=== PATIENT | female | born 1990 ===

== ENCOUNTER 2019-05-12 07:18 | Inpatient (IN) | payer BC ==
[2019-05-12] MEDS ORDERED: Carboprost Tromethamine 250 MCG/1 ML Amp IM PRN (08:31)
[2019-05-12] MEDS ORDERED: Methylergonovine 0.2 MG/1 ML Amp IM PRN (08:31)
[2019-05-12] MEDS ORDERED: Lidocaine 1% 50 ML MDV INJECT PRN (08:31)
[2019-05-12] MEDS ORDERED: Sodium Chloride 0.9% 10 ML Syringe FLUSH PRN (08:31)
[2019-05-12] MEDS ORDERED: Nalbuphine 10 MG/1 ML Vial IVPUSH PRN (08:31)
[2019-05-12] MEDS ORDERED: Tranexamic Acid 1,000 MG in Sodium Chloride 0.9% 100 ML IV PRN (08:31)
[2019-05-12] MEDS ORDERED: Misoprostol 200 MCG Tab PO PRN (08:31)
[2019-05-12] MEDS ORDERED: Butorphanol 1 MG/ML SDV IVPUSH PRN (08:31)
[2019-05-12] MEDS ORDERED: Sodium Chloride 0.9% 10 ML SDV IV PRN (08:31)
[2019-05-12] MEDS ORDERED: Water For Irrigation,Sterile 1,000 ML Container IRR PRN (08:31)
[2019-05-12] MEDS ORDERED: Ampicillin 2 GM in Sodium Chloride 0.9% 100 ML IV ONE (08:31)
[2019-05-12] MEDS ORDERED: Sodium Chloride 0.9% 2.5 ML Syringe FLUSH PRN (08:31)
[2019-05-12] MEDS ORDERED: Oxytocin/0.9 % Sodium Chloride 30 UNIT/500 ML BAG IV SCH (08:45)
[2019-05-12] MEDS ORDERED: Lactated Ringers 1,000 ML IV SCH (08:45)
[2019-05-12] MEDS: Ampicillin 1 GM in Sodium Chloride 0.9% 50 ML IV SCH ×3 (13:08→21:07)
[2019-05-12] MEDS ORDERED: Lanolin 100% Cream 7 GM Tube TOP PRN (22:52)
[2019-05-12] MEDS ORDERED: oxyCODONE 5 MG Tab PO PRN (22:52)
[2019-05-12] MEDS ORDERED: Witch Hazel Medicated Pads 40/Jar TOP PRN (22:52)
[2019-05-12] MEDS ORDERED: Ibuprofen 400 MG Tab PO PRN (22:52)
[2019-05-12] MEDS ORDERED: Docusate Sodium 100 MG Cap PO PRN (22:52)
[2019-05-12] MEDS ORDERED: Ibuprofen 800 MG Tab PO PRN (22:52)
[2019-05-12] MEDS ORDERED: Aluminum Hydroxide/Magnesium Hydroxide/Simethicone Susp 30 ML Cup PO PRN (22:52)
[2019-05-12] MEDS ORDERED: Benzocaine/Menthol 20%-0.5% Spray 78 GM Cannister TOP PRN (22:52)
[2019-05-12] MEDS ORDERED: Bisacodyl 10 MG Supp RECTAL PRN (22:52)
[2019-05-12] MEDS ORDERED: Acetaminophen 500 MG Tab PO PRN ×2 (22:52)
--- NOTE | 2019-05-12 22:53 | PCM.OPNOTE ---
- General Post-Op/Procedure Note Date of Surgery/Procedure: 05/12/19 Findings: Spontaneous vaginal delivery of a life male . Apgars 8 and 9. Weight pending. 3vc. Placenta intact. Pre Op Diagnosis: 40/1 IUP. 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
--- NOTE | 2019-05-13 00:43 | OR ---
SURGEON: Deedee Hummel M.D. DATE OF PROCEDURE: 05/12/2019 PREOPERATIVE DIAGNOSES: Forty one weeks' intrauterine , group B Streptococcus positive, active spontaneous labor. POSTOPERATIVE DIAGNOSES: Forty one weeks' intrauterine , group B Streptococcus positive, active spontaneous labor. PROCEDURE: Term spontaneous vaginal delivery. CARBIDE DIE MAKER: DONALDO Momin. ESTIMATED BLOOD LOSS: 250 mL. FINDINGS: Live born male, scores 8 and 9. Weight pending at time of dictation. Placenta spontaneous, intact. Three-vessel cord. COMPLICATIONS: None known. DISPOSITION: Mother and baby are stable in LDR in good condition. This is a 28-year-old female, G1, P0, presenting at 41 weeks' gestation in active spontaneous labor, initially 3 cm. She was noted to be GBS positive and received prophylactic doses of ampicillin. Category 1 heart tones throughout labor. Artificial rupture of membranes at 5 cm and she progressed to complete and had the urge to push. DESCRIPTION OF PROCEDURE: The patient in dorsal lithotomy position. The patient pushed to 5+ station, at which time the head was delivered spontaneously and atraumatically over the perineum with support and subsequent delivery of the 's shoulders and body without any difficulty. The infant was bulb suctioned by nose and mouth, and after the cord had ceased to pulsate, it was doubly clamped and cut. The infant was handed to the mother in the presence of the nurse and attending delivery nurse. The infant was a live-born male, scores of 8 and 9. Weight is pending at time of dictation. . Cord blood was collected for cord ABGs as well as routine cord blood sampling. Cord was clamped x 2 and cut Placenta was delivered intact and spontaneously with 3-vessel cord. Cervix, vaginal side hart and perieum were inspected and no laceratons observed. Estimated blood loss 250 mL. Final sponge, needle, and instrument counts were correct. Mother and baby remained in LDR in good condition. EMANUEL / BASILIA /[id number] SARAH
--- NOTE | 2019-05-13 07:56 | PCM.PNPP ---
<Hilary Kong - Last Filed: 05/13/19 07:54> - General Info Date of Service: 05/13/19 Functional Status: Reports: Pain Controlled - Review of Systems General: Reports: No Symptoms. Denies: Fever HEENT: Reports: No Symptoms. Denies: Headaches Pulmonary: Reports: No Symptoms. Denies: Shortness of Breath Cardiovascular: Reports: No Symptoms. Denies: Chest Pain, Palpitations Gastrointestinal: Reports: Abdominal Pain (cramping with ) Genitourinary: Reports: Dysuria (mild) Musculoskeletal: Reports: No Symptoms Skin: Reports: No Symptoms Neurological: Reports: No Symptoms Psychiatric: Reports: No Symptoms - General Info Date of Service: 05/13/19 - Patient Data Weight - Most Recent: 73.936 kg Lab Results - Last 24 Hours: Laboratory Results - last 24 hr 05/12/19 05/12/19 05/12/19 Range/Units 08:47 08:47 22:37 WBC 16.41 H (4.0-11.0) K/uL RBC 4.27 L (4.30-5.90) M/uL Hgb 13.2 (12.0-16.0) g/dL Hct 39.0 (36.0-46.0) % MCV 91.3 (80.0-98.0) fL MCH 30.9 (27.0-32.0) pg MCHC 33.8 (31.0-37.0) g/dL RDW Std Deviation 43.5 (28.0-62.0) fl RDW Coeff of Cassidy 13 (11.0-15.0) % Plt Count 156 (150-400) K/uL MPV 11.90 (7.40-12.00) fL Nucleated RBC % 0.0 /100WBC Nucleated RBCs # 0 K/uL Cord ABG pH 7.214 (7.18-7.38) Cord ABG Base Excess -9 (-10--2) Cord VBG pH 7.250 (7.25-7.45) Cord VBG Base Excess -9 (-10--2) Blood Type B NEGATIVE Antibody Screen NEGATIVE 05/13/19 Range/Units 05:55 WBC (4.0-11.0) K/uL RBC (4.30-5.90) M/uL Hgb 11.9 L (12.0-16.0) g/dL Hct 35.2 L (36.0-46.0) % MCV (80.0-98.0) fL MCH (27.0-32.0) pg MCHC (31.0-37.0) g/dL RDW Std Deviation (28.0-62.0) fl RDW Coeff of Cassidy (11.0-15.0) % Plt Count (150-400) K/uL MPV (7.40-12.00) fL Nucleated RBC % /100WBC Nucleated RBCs # K/uL Cord ABG pH (7.18-7.38) Cord ABG Base Excess (-10--2) Cord VBG pH (7.25-7.45) Cord VBG Base Excess (-10--2) Blood Type Antibody Screen Med Orders - Current: Current Medications Acetaminophen (Tylenol Extra Strength) 500 mg PO Q4H PRN PRN Reason: Pain Acetaminophen (Tylenol Extra Strength) 1,000 mg PO Q4H PRN PRN Reason: Pain Al Hydroxide/Mg Hydroxide (Mag-Al Plus) 30 ml PO Q8H PRN PRN Reason: Heartburn Benzocaine/Menthol (Dermoplast Pain Relief 20%-0.5% Hennessey) 78 gm TOP ASDIRECTED PRN PRN Reason: Perineal Comfort Measure Bisacodyl (Dulcolax) 10 mg RECTAL ONETIME PRN PRN Reason: Constipation Carboprost Tromethamine (Hemabate Ds) 250 mcg IM ASDIRECTED PRN PRN Reason: Post Hemorrhage Docusate Sodium (Colace) 100 mg PO BID PRN PRN Reason: Constipation Emollient Ointment (Lansinoh Hpa) 0 gm TOP ASDIRECTED PRN PRN Reason: Sore Nipples Lactated Ringer's (Ringers, Lactated) 1,000 mls @ 150 mls/hr IV ASDIRECTED [facility] Last Admin: 05/12/19 09:00 Dose: 150 mls/hr Oxytocin/Sodium Chloride (Oxytocin 30 Unit/500 Ml-Ns) 30 unit in 500 mls @ 500 mls/hr IV TITRATE [facility] Last Admin: 05/12/19 22:40 Dose: 500 mls/hr Tranexamic Acid 1,000 mg/ (Sodium Chloride) 110 mls @ 660 mls/hr IV ONETIME PRN PRN Reason: Bleeding Ibuprofen (Motrin) 400 mg PO Q4H PRN PRN Reason: Pain Ibuprofen (Motrin) 800 mg PO Q6H PRN PRN Reason: Pain Methylergonovine Maleate (Methergine) 0.2 mg IM ASDIRECTED PRN PRN Reason: Post Hemorrhage Oxycodone HCl (Oxycodone) 5 mg PO Q2H PRN PRN Reason: Pain Sodium Chloride (Saline Flush) 10 ml FLUSH ASDIRECTED PRN PRN Reason: Keep Vein Open Sodium Chloride (Saline Flush) 2.5 ml FLUSH ASDIRECTED PRN PRN Reason: Keep Vein Open Sodium Chloride (Normal Saline) 10 ml IV ASDIRECTED PRN PRN Reason: IV Use Witch Concha (Tucks) 1 pad TOP ASDIRECTED PRN PRN Reason: comfort care Discontinued Medications Butorphanol Tartrate (Stadol) 1 mg IVPUSH Q1H PRN PRN Reason: Pain Ampicillin Sodium 2 gm/ Sodium (Chloride) 100 mls @ 200 mls/hr IV ONETIME ONE Stop: 05/12/19 09:00 Last Admin: 05/12/19 09:26 Dose: 200 mls/hr Ampicillin Sodium 1 gm/ Sodium (Chloride) 50 mls @ 100 mls/hr IV Q4H [facility] Last Admin: 05/12/19 21:07 Dose: 100 mls/hr Lidocaine HCl (Xylocaine 1%) 50 ml INJECT ONETIME PRN PRN Reason: Laceration repair Misoprostol (Cytotec) 200 mcg PO ONETIME PRN PRN Reason: Post Hemorrhage Nalbuphine HCl (Nubain) 10 mg IVPUSH Q1H PRN PRN Reason: Pain (severe 7-10) Sterile Water (Sterile Water For Irrigation) 1,000 ml IRR ASDIRECTED PRN PRN Reason: delivery - Infant Interaction Infant Disposition, : in Room with Family Interaction: Holding Feeding: Breastfed Infant; Nursed Well Support Person: - Recovery Exam Fundal Level: At Umbilicus Fundal Placement: Midline Lochia Amount: Small Lochia Color: Rubra/Red Episiotomy/Laceration: None Bladder Status: Voiding Urinary Elimination: Voided - Exam General: Alert, Oriented HEENT: Pupils Equal Neck: Supple Lungs: Clear to Auscultation, Normal Respiratory Effort Cardiovascular: Regular Rate, Regular Rhythm GI/Abdominal Exam: Normal Bowel Sounds, Soft, Non-Tender, No Organomegaly, No Distention, No Abnormal Bruit, No Mass, Pelvis Stable Extremities: Normal Inspection, Normal Range of Motion, Non-Tender, No Pedal Edema, Normal Capillary Refill Skin: Warm, Dry, Intact Neurological: No New Focal Deficit Psy/Mental Status: Alert, Normal Affect, Normal Mood - Problem List & Annotations (1) Normal vaginal delivery SNOMED Code(s): 75960222, 944347908 Code(s): O80 - ENCOUNTER FOR FULL-TERM UNCOMPLICATED DELIVERY Status: Acute Current Visit: Yes - Problem List Review Problem List Initiated/Reviewed/Updated: Yes - Assessment Assessment:: PPD1 s/p well Pain well controlled - Plan Plan:: Regular diet Pain control PRN Routine care May go home today <Rox Sotelo - Last Filed: 05/13/19 08:39> - Patient Data Lab Results - Last 24 Hours: Laboratory Results - last 24 hr 05/12/19 05/12/19 05/12/19 Range/Units 08:47 08:47 22:37 WBC 16.41 H (4.0-11.0) K/uL RBC 4.27 L (4.30-5.90) M/uL Hgb 13.2 (12.0-16.0) g/dL Hct 39.0 (36.0-46.0) % MCV 91.3 (80.0-98.0) fL MCH 30.9 (27.0-32.0) pg MCHC 33.8 (31.0-37.0) g/dL RDW Std Deviation 43.5 (28.0-62.0) fl RDW Coeff of Cassidy 13 (11.0-15.0) % Plt Count 156 (150-400) K/uL MPV 11.90 (7.40-12.00) fL Nucleated RBC % 0.0 /100WBC Nucleated RBCs # 0 K/uL Cord ABG pH 7.214 (7.18-7.38) Cord ABG Base Excess -9 (-10--2) Cord VBG pH 7.250 (7.25-7.45) Cord VBG Base Excess -9 (-10--2) Blood Type B NEGATIVE Antibody Screen NEGATIVE 05/13/19 Range/Units 05:55 WBC (4.0-11.0) K/uL RBC (4.30-5.90) M/uL Hgb 11.9 L (12.0-16.0) g/dL Hct 35.2 L (36.0-46.0) % MCV (80.0-98.0) fL MCH (27.0-32.0) pg MCHC (31.0-37.0) g/dL RDW Std Deviation (28.0-62.0) fl RDW Coeff of Cassidy (11.0-15.0) % Plt Count (150-400) K/uL MPV (7.40-12.00) fL Nucleated RBC % /100WBC Nucleated RBCs # K/uL Cord ABG pH (7.18-7.38) Cord ABG Base Excess (-10--2) Cord VBG pH (7.25-7.45) Cord VBG Base Excess (-10--2) Blood Type Antibody Screen Med Orders - Current: Current Medications Acetaminophen (Tylenol Extra Strength) 500 mg PO Q4H PRN PRN Reason: Pain Acetaminophen (Tylenol Extra Strength) 1,000 mg PO Q4H PRN PRN Reason: Pain Al Hydroxide/Mg Hydroxide (Mag-Al Plus) 30 ml PO Q8H PRN PRN Reason: Heartburn Benzocaine/Menthol (Dermoplast Pain Relief 20%-0.5% Hennessey) 78 gm TOP ASDIRECTED PRN PRN Reason: Perineal Comfort Measure Bisacodyl (Dulcolax) 10 mg RECTAL ONETIME PRN PRN Reason: Constipation Carboprost Tromethamine (Hemabate Ds) 250 mcg IM ASDIRECTED PRN PRN Reason: Post Hemorrhage Docusate Sodium (Colace) 100 mg PO BID PRN PRN Reason: Constipation Emollient Ointment (Lansinoh Hpa) 0 gm TOP ASDIRECTED PRN PRN Reason: Sore Nipples Lactated Ringer's (Ringers, Lactated) 1,000 mls @ 150 mls/hr IV ASDIRECTED [facility] Last Admin: 05/12/19 09:00 Dose: 150 mls/hr Oxytocin/Sodium Chloride (Oxytocin 30 Unit/500 Ml-Ns) 30 unit in 500 mls @ 500 mls/hr IV TITRATE [facility] Last Admin: 05/12/19 22:40 Dose: 500 mls/hr Tranexamic Acid 1,000 mg/ (Sodium Chloride) 110 mls @ 660 mls/hr IV ONETIME PRN PRN Reason: Bleeding Ibuprofen (Motrin) 400 mg PO Q4H PRN PRN Reason: Pain Ibuprofen (Motrin) 800 mg PO Q6H PRN PRN Reason: Pain Methylergonovine Maleate (Methergine) 0.2 mg IM ASDIRECTED PRN PRN Reason: Post Hemorrhage Oxycodone HCl (Oxycodone) 5 mg PO Q2H PRN PRN Reason: Pain Sodium Chloride (Saline Flush) 10 ml FLUSH ASDIRECTED PRN PRN Reason: Keep Vein Open Sodium Chloride (Saline Flush) 2.5 ml FLUSH ASDIRECTED PRN PRN Reason: Keep Vein Open Sodium Chloride (Normal Saline) 10 ml IV ASDIRECTED PRN PRN Reason: IV Use Witch Concha (Tucks) 1 pad TOP ASDIRECTED PRN PRN Reason: comfort care Discontinued Medications Butorphanol Tartrate (Stadol) 1 mg IVPUSH Q1H PRN PRN Reason: Pain Ampicillin Sodium 2 gm/ Sodium (Chloride) 100 mls @ 200 mls/hr IV ONETIME ONE Stop: 05/12/19 09:00 Last Admin: 05/12/19 09:26 Dose: 200 mls/hr Ampicillin Sodium 1 gm/ Sodium (Chloride) 50 mls @ 100 mls/hr IV Q4H [facility] Last Admin: 05/12/19 21:07 Dose: 100 mls/hr Lidocaine HCl (Xylocaine 1%) 50 ml INJECT ONETIME PRN PRN Reason: Laceration repair Misoprostol (Cytotec) 200 mcg PO ONETIME PRN PRN Reason: Post Hemorrhage Nalbuphine HCl (Nubain) 10 mg IVPUSH Q1H PRN PRN Reason: Pain (severe 7-10) Sterile Water (Sterile Water For Irrigation) 1,000 ml IRR ASDIRECTED PRN PRN Reason: delivery - Problem List Review Problem List Initiated/Reviewed/Updated: Yes - Plan Plan:: Patient was seen and examined by me and I agree with above.
--- NOTE | 2019-05-14 06:55 | PCM.PNPP ---
- General Info Date of Service: 05/14/19 Functional Status: Reports: Pain Controlled, Tolerating Diet, Ambulating, Urinating - Review of Systems General: Reports: No Symptoms HEENT: Reports: No Symptoms Pulmonary: Reports: No Symptoms Cardiovascular: Reports: No Symptoms Gastrointestinal: Reports: No Symptoms Genitourinary: Reports: No Symptoms Musculoskeletal: Reports: No Symptoms Skin: Reports: No Symptoms Neurological: Reports: No Symptoms Psychiatric: Reports: No Symptoms - General Info Date of Service: 05/14/19 - Patient Data Vital Signs - Most Recent: Last Vital Signs Temp 36.6 C 05/14/19 05:18 Pulse 78 05/14/19 05:18 Resp 15 05/14/19 05:18 BP 118/60 05/14/19 05:18 Pulse Ox 97 05/14/19 05:18 Weight - Most Recent: 73.936 kg Med Orders - Current: Current Medications Acetaminophen (Tylenol Extra Strength) 500 mg PO Q4H PRN PRN Reason: Pain Acetaminophen (Tylenol Extra Strength) 1,000 mg PO Q4H PRN PRN Reason: Pain Last Admin: 05/13/19 17:00 Dose: 1,000 mg Al Hydroxide/Mg Hydroxide (Mag-Al Plus) 30 ml PO Q8H PRN PRN Reason: Heartburn Benzocaine/Menthol (Dermoplast Pain Relief 20%-0.5% [place]) 78 gm TOP ASDIRECTED PRN PRN Reason: Perineal Comfort Measure Bisacodyl (Dulcolax) 10 mg RECTAL ONETIME PRN PRN Reason: Constipation Carboprost Tromethamine (Hemabate Ds) 250 mcg IM ASDIRECTED PRN PRN Reason: Post Hemorrhage Docusate Sodium (Colace) 100 mg PO BID PRN PRN Reason: Constipation Emollient Ointment (Lansinoh Hpa) 0 gm TOP ASDIRECTED PRN PRN Reason: Sore Nipples Lactated Ringer's (Ringers, Lactated) 1,000 mls @ 150 mls/hr IV ASDIRECTED [facility] Last Admin: 05/12/19 09:00 Dose: 150 mls/hr Oxytocin/Sodium Chloride (Oxytocin 30 Unit/500 Ml-Ns) 30 unit in 500 mls @ 500 mls/hr IV TITRATE [facility] Last Admin: 05/12/19 22:40 Dose: 500 mls/hr Tranexamic Acid 1,000 mg/ (Sodium Chloride) 110 mls @ 660 mls/hr IV ONETIME PRN PRN Reason: Bleeding Ibuprofen (Motrin) 400 mg PO Q4H PRN PRN Reason: Pain Ibuprofen (Motrin) 800 mg PO Q6H PRN PRN Reason: Pain Last Admin: 05/13/19 11:28 Dose: 800 mg Methylergonovine Maleate (Methergine) 0.2 mg IM ASDIRECTED PRN PRN Reason: Post Hemorrhage Oxycodone HCl (Oxycodone) 5 mg PO Q2H PRN PRN Reason: Pain Sodium Chloride (Saline Flush) 10 ml FLUSH ASDIRECTED PRN PRN Reason: Keep Vein Open Sodium Chloride (Saline Flush) 2.5 ml FLUSH ASDIRECTED PRN PRN Reason: Keep Vein Open Sodium Chloride (Normal Saline) 10 ml IV ASDIRECTED PRN PRN Reason: IV Use Witch Concha (Tucks) 1 pad TOP ASDIRECTED PRN PRN Reason: comfort care Discontinued Medications Butorphanol Tartrate (Stadol) 1 mg IVPUSH Q1H PRN PRN Reason: Pain Ampicillin Sodium 2 gm/ Sodium (Chloride) 100 mls @ 200 mls/hr IV ONETIME ONE Stop: 05/12/19 09:00 Last Admin: 05/12/19 09:26 Dose: 200 mls/hr Ampicillin Sodium 1 gm/ Sodium (Chloride) 50 mls @ 100 mls/hr IV Q4H [facility] Last Admin: 05/12/19 21:07 Dose: 100 mls/hr Lidocaine HCl (Xylocaine 1%) 50 ml INJECT ONETIME PRN PRN Reason: Laceration repair Misoprostol (Cytotec) 200 mcg PO ONETIME PRN PRN Reason: Post Hemorrhage Nalbuphine HCl (Nubain) 10 mg IVPUSH Q1H PRN PRN Reason: Pain (severe 7-10) Sterile Water (Sterile Water For Irrigation) 1,000 ml IRR ASDIRECTED PRN PRN Reason: delivery - Interaction Infant Disposition, : [place] in Room with Family Infant Interaction: Holding Feeding: Breastfed Infant; Nursed Well Support Person: - Recovery Exam Fundal Tone: Firm Fundal Level: 2 Fingerbreadths Below Umbilicus Fundal Placement: Midline Lochia Amount: Scant Lochia Color: Rubra/Red Perineum Description: Edematous Episiotomy/Laceration: None Bladder Status: Voiding Urinary Elimination: Voided - Exam General: Alert, Oriented Neck: Supple Lungs: Normal Respiratory Effort Extremities: Non-Tender, No Pedal Edema Skin: Warm, Dry, Intact Neurological: No New Focal Deficit Psy/Mental Status: Alert, Normal Affect, Normal Mood - Problem List Review Problem List Initiated/Reviewed/Updated: Yes - My Orders Last 24 Hours: My Active Orders 05/13/19 08:40 Ready for Discharge [RC] PER UNIT ROUTINE - Assessment Assessment:: PPD2, stable, well, minimal pain and minimal lochia - Plan Plan:: Dismiss to home today, discharge instructions reviewed.
== END 2019-05-14 11:25 | disposition home or self-care (01) | DRG 560 ==
LOC: MW.OBCHECK 07:18 → MW.OB 07:22 → MW.OBCHECK 08:31 → OBSVTOIN 22:37 → MW.OB 05-13 03:48
PROVIDERS: ADMIT Obstetrics & Gynecology; ATTEND Obstetrics & Gynecology
PROC: 10E0XZZ Delivery of Products of Conception, External Approach (ICD-10-PCS; principal; 2019-05-12)
PROC: 10907ZC Drainage of Amniotic Fluid, Therapeutic from Products of Conception, Via Natural or Artificial Opening (ICD-10-PCS; 2019-05-12)
DX: O48.0 Post-term pregnancy (principal); Z3A.40 40 weeks gestation of pregnancy; Z37.0 Single live birth; O99.824 Streptococcus B carrier state complicating childbirth
CPT/HCPCS: 36415; 59025; 59409; 82803; 85014; 85018; 85027; 86850; 86900; 86901; A9270-GY; J0290; J2590; J7030; J7050; J7120